=== PATIENT | male | born 1955 | race Caucasian/White ===

== ENCOUNTER 2017-05-07 15:45 | Emergency (ER) | payer BC ==
[~2017-05-07] VITALS: Ht 162.6 cm; Wt 73.0 kg
[~2017-05-07 15:45] MED LIST: ALP25 PO; ALPR-448 PO; AMLO-96 PO; ASC500 PO; BACDS PO; CLI150 PO; DOXY-179 PO; DOXY-229 PO; DOXY150T6 PO; DULO30CA6 PO; DULO60CA7 PO; FEXO-72 PO; GAB100 PO; HYDR-3250 PO; HYDR-3377 PO; HYDR-385 PO; IBU200 PO; KET10 PO; LIDO10VI16 INJ; LIDO10VI16 INTRA-ART; LOR5/325 PO; LOSA-37 PO; LOSA-57 PO; MELO-207 PO; MULT-923 PO; NYST15CR32 TP; NYST15OI15 TP; OMEG-26 PO; OMEP40CA48 PO; ONDA4TAB PO; PAN40 PO; PER PO; TRI40I IART
--- NOTE | 2017-05-07 15:47 | ER Report ---
History and Physical Time Seen By MD: 15:46 Hx. of Stated Complaint: weakness HPI/ROS 61-year-old male comes in with 2 bottles of losartan and hydrochlorothiazide 112.5 mom states that they talk to someone in his physicians clinic who told him he should be taking both medications has felt some weakness after initiating both medications I did talk to to be myself and he said make sure he is just taking 1 pill get rid of the 2nd prescription Allergies: Coded Allergies: Penicillins (Verified Allergy, Mild, 05/07/17) sulfamethoxazole (Verified Allergy, Mild, 05/07/17) trimethoprim (Verified Allergy, Mild, 05/07/17) Uncoded Allergies: SEASONAL ALLERGIES (Allergy, Intermediate, SNEEZING, 06/26/11) Home Meds Active Scripts Losartan/Hydrochlorothiazide (LOSARTAN-HCTZ 100-12.5 MG TAB) 1 Each Tablet, 1 TAB PO QAM, #90 TAB 3 Refills Prov:ROMI WILCOX MD 04/30/17 Omeprazole (OMEPRAZOLE) 40 Mg Capsule., 1 CAP PO DAILY, #90 CAP 3 Refills Prov:ROMI WILCOX MD 04/30/17 Discontinued Scripts NYSTATIN 029757 UNT/ML Topical Cream (NYSTATIN 007184 UNT/ML Topical Cream) 15 Gm Cream..g., 15 GM TP BID, #30 GM Prov:ROMI WILCOX MD 04/30/17 Amlodipine Besylate (AMLODIPINE BESYLATE) 5 Mg Tablet, 1 TAB PO QDAY, #30 TAB 6 Refills Prov:ROMI WILCOX MD 04/30/17 Losartan/Hydrochlorothiazide (LOSARTAN-HCTZ 100-12.5 MG TAB) 1 Each Tablet, 1 TAB PO QAM, #30 TAB 0 Refills Prov:ROMI WILCOX MD 04/18/17 Omeprazole (OMEPRAZOLE) 40 Mg Capsule., 1 CAP PO DAILY, #30 CAP 0 Refills Prov:ROMI WILCOX MD 04/18/17 Nystatin/Triamcin (NYSTATIN-TRIAMCINOLONE OINTM) 15 Gm Oint...g., 15 GM TP BID, #30 GM Prov:ROMI WILCOX MD 01/30/17 Doxycycline Hyclate (DOXYCYCLINE HYCLATE) 100 Mg Tablet, 100 MG PO QDAY, #10 TAB 3 Refills Prov:ROMI WILCOX MD 09/26/16 Alprazolam 0.5 Mg Tab (ALPRAZOLAM 0.5 MG TAB) 0.5 Mg Tablet, 1 TAB PO BID Y for prn, #60 TAB 3 Refills Prov:ROMI WILCOX MD 09/26/16 Past Medical/Surgical History htn, gerd Hx Smoking: Yes (1 PPD) Smoking Status: Current: Every Day Smoker Hx Substance Use Disorder: No Hx Alcohol Use: No Family History of: HTN Constitutional Vital Sign - Last 24 Hours 05/07/17 15:51 Temp 98.5 Pulse 61 Resp 20 B/P (MAP) 160/82 Pulse Ox 93 O2 Delivery Room Air Physical Exam 61 year old alert and orieted nad, дмитрий tm non reddened hrr, lungs cta , abd soft , evaristo no peripheral edema Medical Decision Making Data Points Result Diagram: 05/07/17 1608 05/07/17 1608 Laboratory Hematology Test 05/07/17 16:08 Red Blood Count 5.42 M/uL (4.00-5.60) Mean Corpuscular Volume 82.7 fL (80.0-96.0) Mean Corpuscular Hemoglobin 28.7 pg (26.0-33.0) Mean Corpuscular Hemoglobin Concent 34.6 g/dL (32.0-36.0) Red Cell Distribution Width 13.2 % (11.5-14.5) Mean Platelet Volume 8.2 fL (7.2-11.1) Sodium Level 138 mmol/L (137-145) Potassium Level 3.7 mmol/L (3.5-5.0) Chloride Level 99 mmol/L (98-107) Carbon Dioxide Level 27 mmol/L (22-30) Blood Urea Nitrogen 16 mg/dl (9-21) Creatinine 0.90 mg/dl (0.66-1.25) Glomerular Filtration Rate Calc > 60.0 Random Glucose 94 mg/dl (75-110) Calcium Level 9.1 mg/dl (8.4-10.2) Total Bilirubin 0.4 mg/dl (0.2-1.3) Aspartate Amino Transf (AST/SGOT) 41 U/L (0-35) Alanine Aminotransferase (ALT/SGPT) 44 U/L (0-56) Alkaline Phosphatase 65 U/L (0-126) Total Protein 8.2 gm/dl (6.3-8.2) Albumin 4.6 g/dl (3.5-5.0) Chemistry Test 05/07/17 16:08 White Blood Count 7.1 k/uL (4.5-11.0) Red Blood Count 5.42 M/uL (4.00-5.60) Hemoglobin 15.5 g/dL (14.0-18.0) Hematocrit 44.8 % (42.0-52.0) Mean Corpuscular Volume 82.7 fL (80.0-96.0) Mean Corpuscular Hemoglobin 28.7 pg (26.0-33.0) Mean Corpuscular Hemoglobin Concent 34.6 g/dL (32.0-36.0) Red Cell Distribution Width 13.2 % (11.5-14.5) Platelet Count 199 K/uL (150-450) Mean Platelet Volume 8.2 fL (7.2-11.1) Glomerular Filtration Rate Calc > 60.0 Calcium Level 9.1 mg/dl (8.4-10.2) Total Bilirubin 0.4 mg/dl (0.2-1.3) Aspartate Amino Transf (AST/SGOT) 41 U/L (0-35) Alanine Aminotransferase (ALT/SGPT) 44 U/L (0-56) Alkaline Phosphatase 65 U/L (0-126) Total Protein 8.2 gm/dl (6.3-8.2) Albumin 4.6 g/dl (3.5-5.0) ED Course/Re-evaluation ED Course bp 140/80 in the er , have told him to only take one tab of losartan/hctz daily Re-evaluation doing well asymptomatic Decision to Disposition Date: May 07, 2017 Decision to Disposition Time: 15:57 Depart Departure Latest Vital Signs Vital Signs Date Time Temp Pulse Resp B/P (MAP) Pulse Ox O2 Delivery O2 Flow Rate FiO2 05/07/17 15:51 98.5 61 20 160/82 93 Room Air Impression: Primary Impression: Hypertension, benign Condition: Improved Disposition: HOME OR SELF-CARE Referrals: ROMI WILCOX MD (PCP) 2 Days Patient Instructions: Hypertension (ED) Additional Instructions: Only use most current prescription as prescribed follow up with your primary care doctor this week KERRY HAMILTON May 07, 2017 15:47
[2017-05-07 16:44] VITALS: BP 124/82
== END 2017-05-07 16:50 | disposition home or self-care (01) ==
LOC: ER 15:49
DX: G93.2 Benign intracranial hypertension (principal)
CPT/HCPCS: 36415; 82040; 82247; 82310; 82374; 82435; 82565; 82947; 84075; 84132; 84155; 84295; 84450; 84460; 84520; 85027; 99282

== ENCOUNTER 2018-04-28 09:03 | Outpatient (RCR) | payer BC ==
[~2018-04-28 09:03] MED LIST changes: +AMLO-125 PO; +AMLO-127 PO; -AMLO-96 PO; +OLOOD OU
--- NOTE | 2018-04-29 16:02 | RADIOLOGY IMAGING REPORT ---
FACILITY: [facility] - [place] PATIENT NAME: Rohit Hand : 1955 MR: [id number] V: [id number] EXAM DATE: ORDERING PHYSICIAN: ROCIO LUQUE TECHNOLOGIST: Location: [facility] [place] Patient: Rohit Hand : 1955 Visit/Account:[id number] Date of Sevice: 04/29/2018 EXAMINATION: CT abdomen with IV contrast CT pelvis with IV contrast HISTORY: Abdominal wall bulge. TECHNIQUE: Spiral scan was through the abdomen and pelvis during injection of nonionic iodinated in travenous contrast. Sagittal and coronal reformatted images are also submitted. One of the following dose optimization techniques was utilized in the performance of this exam: Autom ated exposure control; adjustment of the mA and/or kV according to the patient's size; or use of an i terative reconstruction technique. Specific details can be referenced in the facility's radiology C T exam operational policy. CONTRAST: 90 mL of IV Isovue-370 COMPARISON: Abdomen and pelvis CT dated 11/16/2010. FINDINGS: Lower chest: Negative. Liver / biliary: Negative. Pancreas: Negative. Spleen: Negative. Adrenal glands: Negative. Kidneys: Negative. Pelvic structures: Negative. Bowel: Normal appendix. Otherwise negative. Peritoneum / retroperitoneum / mesenteries: Negative. Vessels: Moderate aortoiliac calcification with no aneurysm. Lymph nodes: Mildly enlarged lymph nodes posterior and superior to the pancreatic head measuring up t o 2.9 x 1.9 cm, previously measuring 2.5 x 1.4 cm on 11/16/2010. Musculoskeletal / Body wall: Mild rectus abdominis diastases. No hernia. Multilevel degenerative di sc disease in the thoracolumbar spine. Mild bilateral hip osteoarthritis. IMPRESSION: 1. Mild rectus abdominis diastases. No hernia. 2. No acute abnormality in the abdomen or pelvis. 3. Mildly enlarged lymph nodes posterior and superior to the pancreatic head measuring up to 2.9 x 1 .9 cm, previously measuring 2.5 x 1.4 cm on 11/16/2010. These are probably benign given the very slow growth since 2010. 4. Multilevel degenerative disc disease in the thoracolumbar spine. Mild bilateral hip osteoarthrit is. Report Dictated By: Henrique Jimenez MD at 04/29/2018 3:45 PM Report E-Signed By: Henrique Jimenez MD at 04/29/2018 3:57 PM WSN:[email or web address]
== END 2018-04-29 18:00 | disposition home or self-care (01) ==
LOC: LAB 09:03
PROVIDERS: ATTEND Surgery
DX: M62.08 Separation of muscle (nontraumatic), other site (principal); R59.0 Localized enlarged lymph nodes; M16.0 Bilateral primary osteoarthritis of hip
CPT/HCPCS: 36415; 74177; 82565; Q9967

== ENCOUNTER 2018-08-16 20:51 | Observation (INO) | payer BC ==
[~2018-08-16] VITALS: Ht 162.6 cm; Wt 72.1 kg
[~2018-08-16 20:51] MED LIST changes: +ALBU8.5H IH; +ATOR20TA65 PO; +AZIT-17 PO; +BUPR1FIL7 SL; +IPRA3AMP10 IH; +PRED20TA6 PO
--- NOTE | 2018-08-16 21:00 | ER Report ---
History and Physical Time Seen By MD: 21:00 HPI/ROS CHIEF COMPLAINT: Shortness of breath HISTORY OF PRESENT ILLNESS: 62-year-old male smoker with history of COPD. He is followed by Dr. Taylor was seen 2 weeks ago treated with Zithromax, prednisone for 5 days. He was also dispensed an albuterol inhaler. Patient notes increasing shortness of breath over the last 2 days with a productive cough of yellow-green sputum. He's had low-grade fevers. Patient notes increased work of breathing, especially with exertion. On arrival. His pulse ox is 83% on room air. He requires 5 L. Patient's on no home O2. During the last visit. His pulse ox is 85% and came up to 93% after nebulizer. He was discharged home on an albuterol inhaler at that time. Eyes, chest pain, diaphoresis, nausea or leg swelling. REVIEW OF SYSTEMS: Respiratory: As above Cardiovascular: No chest pain, no palpitations. Gastrointestinal: No vomiting, no abdominal pain. Musculoskeletal: No back pain. Allergies: Coded Allergies: Penicillins (Verified Allergy, Mild, 05/07/17) sulfamethoxazole (Verified Allergy, Mild, 05/07/17) trimethoprim (Verified Allergy, Mild, 05/07/17) Uncoded Allergies: SEASONAL ALLERGIES (Allergy, Intermediate, SNEEZING, 06/26/11) Home Meds Active Scripts Prednisone (PREDNISONE) 20 Mg Tablet, 40 MG PO QDAY for 10 Days, #20 TAB Prov:AARON APPLE DO 08/17/18 Tiotropium [place] (SPIRIVA) 18 Mcg/Cap Inh, 0 MCG INH QDAYR for 30 Days, #1 INH Prov:AARON APPLE DO 08/17/18 Doxycycline Hyclate (DOXYCYCLINE HYCLATE) 100 Mg Tablet, 100 MG PO BID for 7 Days, #14 TAB Prov:AARON APPLE DO 08/17/18 Albuterol Sulfate 90 Mcg/Act (PROAIR HFA 90 MCG/ACT) 8.5 Gm Hfa.aer.ad, 2 PUFF IH Q4-6H PRN for SHORTNESS OF BREATH, #1 INHALER 1 Refill Prov:ROMI TAYLOR MD 07/31/18 Atorvastatin Calcium (ATORVASTATIN CALCIUM) 20 Mg Tablet, 1 TAB PO QDAY, #30 TAB 3 Refills Prov:ROMI TAYLOR MD 07/31/18 NYSTATIN 341302 UNT/ML Topical Cream (NYSTATIN 429360 UNT/ML Topical Cream) 15 Gm Cream..g., 15 GM TP BID, #15 GM Prov:ROMI TAYLOR MD 07/31/18 Omeprazole (OMEPRAZOLE) 40 Mg Capsule.dr, 1 CAP PO DAILY, #90 CAP 4 Refills Prov:ROMI TAYLOR MD 07/31/18 Amlodipine Besylate (AMLODIPINE BESYLATE) 10 Mg Tablet, 1 TAB PO QDAY, #90 TAB 3 Refills Prov:ROMI TAYLOR MD 07/31/18 Losartan/Hydrochlorothiazide (LOSARTAN-HCTZ 100-12.5 MG TAB) 1 Each Tablet, 1 TAB PO QAM, #90 TAB 3 Refills Prov:ROMI TAYLOR MD 07/31/18 Reported Medications Buprenorphine Hcl/Naloxone Hcl (SUBOXONE 8 MG-2 MG SL FILM) 1 Each Film, 1 EACH SL BID, FILM 05/13/18 Discontinued Scripts Prednisone (PREDNISONE) 20 Mg Tablet, 20 MG PO BID, #10 TAB Prov:ROMI TAYLOR MD 07/31/18 Azithromycin (Z-PACK) 250 Mg Tablet, 0 PO QDAY, #6 DOSE-PACK Prov:ROMI TAYLOR MD 07/31/18 Past Medical/Surgical History Past medical history: Neuropathy, allergic rhinitis, deviated septum, right parotid tumor resection, hypertension, COPD, GERD, chronic 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 Past surgical history parotid tumor resection of right jaw, arthroscopy right knee , carpal tunnel release 1984, spinal surgery of C7 1990 Reviewed Nurses Notes: Yes Old Medical Records Reviewed: Yes Hx Smoking: Yes (1 PPD) Smoking Status: Current: Every Day Smoker Hx Substance Use Disorder: No Hx Alcohol Use: No Constitutional Vital Sign - Last 24 Hours 08/16/18 08/16/18 08/16/18 08/16/18 20:56 20:58 21:00 21:10 Temp 98.5 Pulse 70 Resp 22 B/P (MAP) 159/73 159/73 (101) Pulse Ox 83 92 O2 Delivery Room Air Nasal Cannula O2 Flow Rate 5.0 4.5 08/16/18 08/16/18 08/16/18 08/16/18 21:11 21:13 21:20 21:21 Pulse 65 64 66 Resp 16 16 18 B/P (MAP) 130/65 (86) Pulse Ox 90 08/16/18 08/16/18 08/16/18 08/16/18 21:30 21:51 21:56 22:56 Pulse 65 63 61 Resp 25 15 12 B/P (MAP) 128/67 (87) Pulse Ox 95 95 91 08/16/18 08/16/18 08/16/18 08/16/18 23:00 23:26 23:31 23:32 Pulse 68 62 Resp 18 B/P (MAP) 129/63 (85) Pulse Ox 85 92 O2 Delivery Nasal Cannula O2 Flow Rate 4.0 08/16/18 23:37 Pulse 60 Resp 18 Intake and Output 08/16/18 08/16/18 08/17/18 14:59 22:59 06:59 Intake Total 1000 ml Balance 1000 ml Physical Exam General Appearance: The patient is alert, has no immediate need for airway protection and no current signs of toxicity. Signs stable, pulse ox 85% on room air, requiring 5 L to maintain saturations in the low 90s HEENT: Pupils equal and round no injection. TMs normal, oropharynx with mild erythema, no exudate Respiratory: Chest is non tender, decreased breath sounds throughout with bibasilar rhonchi and wheezing Cardiac: regular rate and rhythm Gastrointestinal: Abdomen is soft and non tender, no masses, bowel sounds normal. Musculoskeletal: Neck: Neck is supple and non tender. No lymphadenopathy Extremities have full range of motion and are non tender. No edema, no calf tenderness Skin: No rashes or lesions. DIFFERENTIAL DIAGNOSIS: After history and physical exam differential diagnosis was considered for shortness of breath including but not limited to pulmonary infectious process, COPD, asthma, pulmonary embolus and congestive heart failure. Medical Decision Making Data Points Result Diagram: 08/16/18211208/16/182112 Laboratory Hematology Test 08/16/18 21:13 Red Blood Count 5.07 M/uL (4.00-5.60) Mean Corpuscular Volume 83.5 fL (80.0-96.0) Mean Corpuscular Hemoglobin 28.4 pg (26.0-33.0) Mean Corpuscular Hemoglobin Concent 34.0 g/dL (32.0-36.0) Red Cell Distribution Width 13.3 % (11.5-14.5) Mean Platelet Volume 8.0 fL (7.2-11.1) Neutrophils (%) (Auto) 52.4 % (39.4-72.5) Lymphocytes (%) (Auto) 27.7 % (17.6-49.6) Monocytes (%) (Auto) 9.7 % (4.1-12.4) Eosinophils (%) (Auto) 9.3 % (0.4-6.7) Basophils (%) (Auto) 0.9 % (0.3-1.4) Nucleated RBC Relative Count (auto) 0.0 /100WBC Neutrophils # (Auto) 4.1 K/uL (2.0-7.4) Lymphocytes # (Auto) 2.2 K/uL (1.3-3.6) Monocytes # (Auto) 0.8 K/uL (0.3-1.0) Eosinophils # (Auto) 0.7 K/uL (0.0-0.5) Basophils # (Auto) 0.1 K/uL (0.0-0.1) Nucleated RBC Absolute Count (auto) 0.00 K/uL D-Dimer Quantitative (PE/DVT) 0.72 ug/ml (0-0.50) Sodium Level 143 mmol/L (137-145) Potassium Level 3.5 mmol/L (3.5-5.0) Chloride Level 105 mmol/L (98-107) Carbon Dioxide Level 25 mmol/L (22-30) Blood Urea Nitrogen 13 mg/dl (9-21) Creatinine 0.90 mg/dl (0.66-1.25) Glomerular Filtration Rate Calc > 60.0 Random Glucose 120 mg/dl (75-110) Lactate 1.7 mmol/L (0.7-2.1) Calcium Level 9.1 mg/dl (8.4-10.2) Total Bilirubin 0.2 mg/dl (0.2-1.3) Aspartate Amino Transf (AST/SGOT) 23 U/L (0-35) Alanine Aminotransferase (ALT/SGPT) 24 U/L (0-56) Alkaline Phosphatase 62 U/L (0-126) Troponin I < 0.012 ng/ml B-Type Natriuretic Peptide 49 pg/ml (0-100) Total Protein 7.1 g/dl (6.3-8.2) Albumin 4.1 g/dl (3.5-5.0) Chemistry Test 08/16/18 21:13 White Blood Count 7.9 k/uL (4.5-11.0) Red Blood Count 5.07 M/uL (4.00-5.60) Hemoglobin 14.4 g/dL (14.0-18.0) Hematocrit 42.4 % (42.0-52.0) Mean Corpuscular Volume 83.5 fL (80.0-96.0) Mean Corpuscular Hemoglobin 28.4 pg (26.0-33.0) Mean Corpuscular Hemoglobin Concent 34.0 g/dL (32.0-36.0) Red Cell Distribution Width 13.3 % (11.5-14.5) Platelet Count 214 K/uL (150-450) Mean Platelet Volume 8.0 fL (7.2-11.1) Neutrophils (%) (Auto) 52.4 % (39.4-72.5) Lymphocytes (%) (Auto) 27.7 % (17.6-49.6) Monocytes (%) (Auto) 9.7 % (4.1-12.4) Eosinophils (%) (Auto) 9.3 % (0.4-6.7) Basophils (%) (Auto) 0.9 % (0.3-1.4) Nucleated RBC Relative Count (auto) 0.0 /100WBC Neutrophils # (Auto) 4.1 K/uL (2.0-7.4) Lymphocytes # (Auto) 2.2 K/uL (1.3-3.6) Monocytes # (Auto) 0.8 K/uL (0.3-1.0) Eosinophils # (Auto) 0.7 K/uL (0.0-0.5) Basophils # (Auto) 0.1 K/uL (0.0-0.1) Nucleated RBC Absolute Count (auto) 0.00 K/uL D-Dimer Quantitative (PE/DVT) 0.72 ug/ml (0-0.50) Glomerular Filtration Rate Calc > 60.0 Lactate 1.7 mmol/L (0.7-2.1) Calcium Level 9.1 mg/dl (8.4-10.2) Total Bilirubin 0.2 mg/dl (0.2-1.3) Aspartate Amino Transf (AST/SGOT) 23 U/L (0-35) Alanine Aminotransferase (ALT/SGPT) 24 U/L (0-56) Alkaline Phosphatase 62 U/L (0-126) Troponin I < 0.012 ng/ml B-Type Natriuretic Peptide 49 pg/ml (0-100) Total Protein 7.1 g/dl (6.3-8.2) Albumin 4.1 g/dl (3.5-5.0) Coagulation Test 08/16/18 21:13 D-Dimer Quantitative (PE/DVT) 0.72 ug/ml Microbiology Microbiology Date/Time Source Procedure Growth Status 08/16/18 21:35 Blood Peripheral Draw Blood Culture - Preliminary NO GROWTH AFTER 1 DAY, REINCUBATED Resulted 08/16/18 21:13 Blood Peripheral Draw Blood Culture - Preliminary NO GROWTH AFTER 1 DAY, REINCUBATED Resulted EKG/Imaging EKG Interpretation 12 lead EK Rhythm: normal sinus rhythm [place]: normal QRS: normal ST segments: normal, comparison to previous EKG dated 02/11/15 and no significant change. Imaging Results: CT scan of the CTA pulmonary angiogram was obtained. The results of the study are CT CTA CHEST W & W/O CON HISTORY: Hypoxia. Elevated d-dimer. ADDITIONAL HISTORY: None. TECHNIQUE: CTA chest with contrast. 3D coronal slab MIPs and 2D reconstructions in the coronal and sagittal planes were also created. One of the following dose optimization techniques was utilized in the performance of this exam: automated exposure control; adjustment of the mA and/or kv according to patient size; or use of iterative reconstruction technique. Specific details can be referenced in the facility's radiology CT exam operational policy. CONTRAST: 75 cc of Isovue-370 COMPARISON: None. FINDINGS: Vessels: No acute filling defect within the main, lobar or segmental pulmonary arteries. Mild calcification of the coronary arteries. Lower neck: Negative. Heart and pericardium: Negative Mediastinum/hilum/lymph nodes: Negative. Lungs/pleura: Moderate bronchial thickening. 3 mm pleural-based right upper lobe nodule (image 41). No consolidation or pleural effusion. Mucous plugging within the bilateral lower lobes. Visualized upper abdomen: Negative. Bones/soft tissues: Negative. Other findings: None significant IMPRESSION: 1. Negative for acute pulmonary embolism. 2. Moderate bronchial thickening with mucous plugging within the bilateral lower lobes. 3. 3 mm noncalcified right upper lobe pulmonary nodule. Fleischner Society recommendations below. FLEISCHNER SOCIETY FOLLOW-UP GUIDELINES FOR NEWLY DETECTED INCIDENTAL NODULES IN PERSONS 35 YEARS OF AGE OR OLDER. *These recommendations do NOT apply to lung cancer screening, patients with immunosuppression or patients with a known primary malignancy. The study was read by the radiologist. I viewed the images myself on the PACS system. ED Course/Re-evaluation Clinical Indication for ER IV: Hydration, IV Access ED Course Patient was admitted to an examination room. H&P was done. The differential diagnoses was considered. Patient was treated for COPD exacerbation. Chest x- ray shows no obvious infiltrate. Patient's had productive cough of yellowish sputum. He was treated with Zithromax 2 weeks ago without improvement. He's rebounded after finishing his medications and gotten much worse over the last 2 days. He has increased work of breathing with exertion here in the ER. His pulse ox on room air was 83%. He's requiring 5 L for normal saturations. EKG was unremarkable for changes. Diagnostic studies show normal white blood cell count. Patient was treated with IV Solu-Medrol, DuoNeb 2. Patient continues to smoke one half pack per day. Patient's unable to tolerate walking to the bathroom without increased work of breathing. Case was discussed with hospitalist who accepts the patient for admission. A CT scan was done to rule out pulmonary embolism. It was negative for PEs, but showed gross bronchial plugging with mucus in the lower lobes bilaterally. 08/16/2018 11:49:36 pm is discussed with Dr. Douglas hospitalist on-call, who accepts the patient for admission for treatment of his COPD exacerbation. Decision to Disposition Date: Aug 16, 2018 Decision to Disposition Time: 23:34 Depart Departure Latest Vital Signs Vital Signs Date Time Temp Pulse Resp B/P (MAP) Pulse Ox O2 Delivery O2 Flow Rate FiO2 08/16/18 23:37 60 18 08/16/18 23:32 92 Nasal Cannula 4.0 08/16/18 23:00 129/63 (85) 08/16/18 20:56 98.5 Impression: Primary Impression: Acute bronchitis Additional Impressions: Mucus plugging of bronchi COPD exacerbation Condition: Improved Disposition: Admitted from ER Referrals: ROMI TAYLOR MD (PCP) New Scripts Prednisone (PREDNISONE) 20 Mg Tablet 40 MG PO QDAY for 10 Days, #20 TAB Prov: AARON APPLE DO 08/17/18 Tiotropium [place] (SPIRIVA) 18 Mcg/Cap Inh 0 MCG INH QDAYR for 30 Days, #1 INH Prov: AARON APPLE DO 08/17/18 Doxycycline Hyclate (DOXYCYCLINE HYCLATE) 100 Mg Tablet 100 MG PO BID for 7 Days, #14 TAB Prov: AARON APPLE DO 08/17/18 Problem Qualifiers Primary Impression: Acute bronchitis Bronchitis organism: unspecified organism Qualified Codes: J20.9 - Acute bronchitis, unspecified MIRACLE MIKE DO Aug 16, 2018 21:00
[2018-08-16] MEDS ORDERED: NS(*) 0.9% 1000 ML BAG 1,000 ML IV ONE (21:04)
--- NOTE | 2018-08-16 21:23 | EKG ---
FACILITY: [facility] - [place] PATIENT NAME: IFEANYI THOMAS : [id number] MR: [id number] V: [id number] EXAM DATE: ORDERING PHYSICIAN: MIRACLE MIKE TECHNOLOGIST: YUSEF Test Reason : DYSPNEA Blood Pressure : / mmHG Vent. Rate : 064 BPM Atrial Rate : 064 BPM P-R Int : 160 ms QRS Dur : 094 ms QT Int : 424 ms P-R-T Axes : 064 070 066 degrees QTc Int : 437 ms Normal sinus rhythm Non-specific T wave flattening similar to previous ECG. When compared with ECG of 11-FEB-2015 08:43, No significant change was found Confirmed by ABEL SMALLWOOD ([id number]) on 08/16/2018 10:40:43 PM Referred By: Confirmed By:ABEL SMALLWOOD
[2018-08-16 21:40] LABS: PLATELET COUNT, AUTOMATED 214 K/uL (150-450)
[2018-08-16] MEDS ORDERED: NS(*) 0.9% 50 ML BAG 50 ML ONE (21:59)
[2018-08-16] MEDS ORDERED: IOPAMIDOL 76% 100 ML INFUS BTL 100 ML ONE (21:59)
--- NOTE | 2018-08-16 23:08 | RADIOLOGY IMAGING REPORT ---
FACILITY: [facility] PATIENT NAME: Rohit Hand : 1955 MR: [id number] V: [id number] EXAM DATE: ORDERING PHYSICIAN: MIRACLE MIKE TECHNOLOGIST: Location: [facility] Patient: Rohit Hand : 1955 Visit/Account:[id number] Date of Sevice: 08/16/2018 CT CTA CHEST W & W/O CON HISTORY: Hypoxia. Elevated d-dimer. ADDITIONAL HISTORY: None. TECHNIQUE: CTA chest with contrast. 3D coronal slab MIPs and 2D reconstructions in the coronal and sagittal planes were also created. One of the following dose optimization techniques was utilized in the performance of this exam: automated exposure control; adjustment of the mA and/or kv according to patient size; or use of iterative reconstruction technique. Specific details can be referenced in [facility] radi[facility] exam operational policy. CONTRAST: 75 cc of Isovue-370 COMPARISON: None. FINDINGS: Vessels: No acute filling defect within the main, lobar or segmental pulmonary arteries. Mild calcif ication of the coronary arteries. Lower neck: Negative. Heart and pericardium: Negative Mediastinum/hilum/lymph nodes: Negative. Lungs/pleura: Moderate bronchial thickening. 3 mm pleural-based right upper lobe nodule (image 41). No consolidation or pleural effusion. Mucous plugging within the bilateral lower lobes. Visualized upper abdomen: Negative. Bones/soft tissues: Negative. Other findings: None significant IMPRESSION: 1. Negative for acute pulmonary embolism. 2. Moderate bronchial thickening with mucous plugging within the bilateral lower lobes. 3. 3 mm noncalcified right upper lobe pulmonary nodule. Fleischner Society recommendations below. FLEISCHNER SOCIETY FOLLOW-UP GUIDELINES FOR NEWLY DETECTED INCIDENTAL NODULES IN PERSONS 35 YEARS OF AGE OR OLDER. *These recommendations do NOT apply to lung cancer screening, patients with immunosuppression or dustin ents with a known primary malignancy. SOLITARY SOLID NODULE If nodule size is < 6 mm: * Low risk patient ? No routine follow-up. * High risk patient ? Optional CT at 12 months. If nodule size is 6-8 mm: * Low risk patient ? CT at 6-12 months, then consider CT at 18-24 months if no change. * High risk patient ? CT at 6-12 months, then CT at 18-24 months if no change. If nodule size is > 8 mm: * Low risk patient ? Consider CT at 3, 9 and 24 months (if no change), PET/CT, tissue sampling or a combination thereof. * High risk patient ? Consider CT at 3, 9 and 24 months (if no change), PET/CT, tissue sampling, or a combination thereof. LOW RISK PATIENT: Minimal or absent history of tobacco use and of other known risk factors. HIGH RISK PATIENT: Tobacco use, family history of lung cancer, upper pulmonary lobe location of nodul e, presence of emphysema, pulmonary fibrosis, older age. Robert H, Asmita DP, Georgeo JM, et al. Guidelines for Management of Incidental Pulmonary Nodules Dete cted on CT Images: From the Fleischner Society 2017. Radiology. Report Dictated By: Garo Goodwin MD at 08/16/2018 10:57 PM Report E-Signed By: Garo Goodwin MD at 08/16/2018 11:03 PM WSN:[id number]
[2018-08-16] MEDS ORDERED: methylPREDNIS SUCC 125 MG/2ML IVP ONE (23:15)
[2018-08-16] MEDS ORDERED: CEFUROXIME AXETIL 250 MG TAB PO ONE (23:15)
[2018-08-16] MEDS ORDERED: ALBUTEROL/IPRATROPIUM 3 ML NEB NEB ONE (23:15)
[2018-08-17] MEDS ORDERED: ALBUTEROL 1.25 MG/3ML NEB NEB PRN (00:05)
[2018-08-17 00:34] VITALS: BP 140/69
--- NOTE | 2018-08-17 00:36 | History & Physical ---
History of Present Illness Chief Complaint Shortness of breath History of Present Illness 62 yr old male with shortness of breath unresponsive to outpt. care with zithromax, prednisone and albuterol inhaler. Long history of COPD due to heavy smoking for approx 40 years. Recurrent hx of acute exacerbations usually due to bronchitis. Seen in ER tonight and did not respond very well to oral ceftin, nebs and IV steroids. CT of chest showed thickening of bronchi mostly in lower lobes with no pneumonia. No PE's. ER doc requested admission due to poor response to therapy and continued high O2 requirements (5L/min). History Problems: (1) Allergic rhinitis Status: Chronic (2) Erectile dysfunction Status: Chronic (3) Primary localized osteoarthrosis, lower leg Status: Chronic (4) Esophageal reflux Status: Chronic (5) Tobacco use disorder Status: Chronic (6) Hyperlipidemia Status: Chronic (7) Hypertension, benign Status: Chronic (8) Chronic pain Status: Chronic (9) Parotid neoplasm Status: Resolved Other Past Medical Hx Does not get flu shot because he "never gets the flu". Also has not received pneumonia vaccine. Advised to do both sometime this summer before fall season rolls around. He will discuss with Dr. Taylor. Home Meds Active Scripts Albuterol Sulfate 90 Mcg/Act (PROAIR HFA 90 MCG/ACT) 8.5 Gm Hfa.aer.ad, 2 PUFF IH Q4-6H PRN for SHORTNESS OF BREATH, #1 INHALER 1 Refill Prov:ROMI TAYLOR MD 07/31/18 Atorvastatin Calcium (ATORVASTATIN CALCIUM) 20 Mg Tablet, 1 TAB PO QDAY, #30 TAB 3 Refills Prov:ROMI TAYLOR MD 07/31/18 Prednisone (PREDNISONE) 20 Mg Tablet, 20 MG PO BID, #10 TAB Prov:ROMI TAYLOR MD 07/31/18 NYSTATIN 179822 UNT/ML Topical Cream (NYSTATIN 006347 UNT/ML Topical Cream) 15 Gm Cream..g., 15 GM TP BID, #15 GM Prov:ROMI TAYLOR MD 07/31/18 Omeprazole (OMEPRAZOLE) 40 Mg Capsule.dr, 1 CAP PO DAILY, #90 CAP 4 Refills Prov:ROMI TAYLOR MD 07/31/18 Amlodipine Besylate (AMLODIPINE BESYLATE) 10 Mg Tablet, 1 TAB PO QDAY, #90 TAB 3 Refills Prov:ROMI TAYLOR MD 07/31/18 Losartan/Hydrochlorothiazide (LOSARTAN-HCTZ 100-12.5 MG TAB) 1 Each Tablet, 1 TAB PO QAM, #90 TAB 3 Refills Prov:ROMI TAYLOR MD 07/31/18 Reported Medications Buprenorphine Hcl/Naloxone Hcl (SUBOXONE 8 MG-2 MG SL FILM) 1 Each Film, 1 EACH SL BID, FILM 05/13/18 Discontinued Scripts Azithromycin (Z-PACK) 250 Mg Tablet, 0 PO QDAY, #6 DOSE-PACK Prov:ROMI TAYLOR MD 07/31/18 Allergies: Coded Allergies: Penicillins (Verified Allergy, Mild, 05/07/17) sulfamethoxazole (Verified Allergy, Mild, 05/07/17) trimethoprim (Verified Allergy, Mild, 05/07/17) Uncoded Allergies: SEASONAL ALLERGIES (Allergy, Intermediate, SNEEZING, 06/26/11) Patient History: Cerebral hemorrhage FATHER, , Age:46 FH: breast cancer BROTHER OR SISTER, FH: diabetes mellitus FH: heart disease MOTHER, , Age:81 FH: seizures BROTHER OR SISTER, Hx Smoking: Yes (1 PPD) Smoking Status: Current: Every Day Smoker Hx Alcohol Use: No Review of Systems Constitutional: No Fever, No Weight Loss, No Weight Gain, No Chills, No Night Sweats Cardiovascular: No Chest Pain, No Palpitations, No Orthostatic Hypotension Respiratory: Shortness of Breath, Cough, Wheezing Gastrointestinal: Dysphagia Musculoskeletal: Pain Exam Vital Signs Vital Signs Date Time Temp Pulse Resp B/P (MAP) Pulse Ox O2 Delivery O2 Flow Rate FiO2 08/16/18 23:37 60 18 08/16/18 23:32 92 Nasal Cannula 4.0 08/16/18 23:00 129/63 (85) 08/16/18 20:56 98.5 General Appearance: Alert, Awake, No Acute Distress, Afebrile Cardiovascular: Regular Rate and Rhythm, Other (S1S2 are normal. No murmur, gallops or rubs.) Respiratory: Other (Ronchi both lower lobes with mild expiratory wheezing. Expansion is fairly good given the wheezing. No rubs.) Chest: No Tenderness : No CVA Tenderness Extremities: Soft and Non Tender, Warm, Pulses, Perfused Psych: Alert & Oriented X3, Appropriate Mood & Affect Medical Decision Making Data Points Result Diagram: 08/16/18211208/16/182112 EKG / Imaging EKG Interpretation Non- specific T changes. No acute changes. Sinus rhythm. Monitor Interpretation: Normal Sinus Rhythm Imaging CT of chest shows peribronchial thickening but no pneumonia. No PE's. Pre-Admit Course ED Medications REviewed. Medical Record Review: Yes Assessment and Plan Problems: (1) COPD exacerbation Status: Acute Assessment & Plan: Due to acute bronchitis type problem at this point. Admitted for IV antibiotic with rocephin (1gm IV bid) and steroids (60 mg IV q 8 hours). Doxycycline 100 mg po bid. Xopenex nebs. Mucinex bid and chest physiotherapy if needed. Monitor O2 closely. He is slightly better since admission with O2 at 4 L/min now. Obviously needs to quit smoking. (2) Hypertension, benign Status: Chronic Assessment & Plan: Continue current meds. (3) Hyperlipidemia Status: Chronic Assessment & Plan: Continue current meds (4) Esophageal reflux Status: Chronic Assessment & Plan: Continue current meds. (5) Tobacco use disorder Status: Chronic (6) Parotid neoplasm Status: Resolved Time Spent on Plan of Care: > 30 min Copies to: ROMI TAYLOR MD ; Venous Thromboembolism VTE Risk Physician Assess for VTE Risk: Yes Patient's VTE Risk: Low VTE Diagnostic Test 2 Days Prior to Admit: No Antithrombotics Is Pt On Any Antithrombotics?: No Prophylaxis Tx Contraindicated Pharmacological Contraindicati: Pt at Low Risk for VTE Mechanical Contraindications: Pt at Low Risk for VTE Exam Sepsis Risk: No Definite Risk LUCRECIA SMALLWOOD MD FACP Aug 17, 2018 00:36
[2018-08-17] MEDS: LEVALBUTEROL 1.25 MG/3 ML NEB NEB SCH ×3 (00:43→09:21)
[2018-08-17] MEDS: guaiFENesin 600 MG TABCR PO SCH ×2 (00:50→09:13)
[2018-08-17] MEDS: DOXYCYCLINE HYCL 100 MG TAB PO SCH ×2 (00:50→09:13)
[2018-08-17] MEDS ORDERED: cefTRIAXone 1 GM VIAL IVP SCH (01:00)
[2018-08-17] MEDS ORDERED: methylPREDNIS SUCC 125 MG/2ML IVP SCH (05:00)
[2018-08-17 05:26] VITALS: BP 127/63
[2018-08-17] MEDS ORDERED: PANTOPRAZOLE SOD 40 MG TABEC PO SCH (06:00)
[2018-08-17 06:45] VITALS: BP 116/65
[2018-08-17] MEDS ORDERED: TIOTROPIUM BROM INH 18 MCG/CAP INH SCH (08:45)
[2018-08-17] MEDS ORDERED: predniSONE 20 MG TAB PO SCH (09:00)
[2018-08-17] MEDS ORDERED: amLODIPine BESYL(*) 5 MG TAB PO SCH (09:00)
[2018-08-17] MEDS ORDERED: LOSARTAN POTASSIUM 50 MG TAB PO SCH ×2 (09:00)
[2018-08-17] MEDS ORDERED: HYDROCHLOROTHIAZIDE 25 MG TAB PO SCH ×2 (09:00)
--- NOTE | 2018-08-17 10:53 | Medical Nutrition Therapy ---
Nutrition Anthropometrics Height (Inches): 64.00 Height (Calculated Centimeters: 162.290075 Weight (Pounds): 159 Weight (Calculated Kilograms): 72.121 BMI: 27.3 Lit Nutrition Score: Adequate Lit Nutrition Risk Score: 22 Dietary Referral Nutrition Risk Factors: Nutrition Risk Comment: Physical Findings Physical Appearance: Overweight BMI 25-29 Skin Appearance Skin Appearance: Edema Edema Location Modifier: Edema Location: Type of Edema: Degree of Edema: Gastrointestinal Symptoms GI Symtoms: Tube Present: Bowel Sounds: Recent Bowel Pattern: Stool Characteristics: Nutrition/Food History Increased Appetite Good Nutritional Diagnosis Nutritional Risk Acuity 4: Good Appetite, Age Related Past Medical History: OA,HLD,HTN,GERD Nutritional Acuity: 4-Low Energy Requirement: 1851 (MSJ x AF1.3) Protein Requirement: 87 (87-123g/day 1.2-1.7g/kg (COPD Exacerabation)) Fluid Requirement: 1851 (1mL/kcal) Nutritional Needs Comment: Recommend increase ascorbic acid (fruit and vegetable) consumption as pt continues to smoke. Smoking increases ascorbic acid requirement. Nutrition Monitoring & Eval Nutrition Goals: Eat 75-100% Meal Nutrition Follow-Up: Good Intake Nutrition Monitoring: Monitor dietary intake and need for additional calories due to COPD exacerbation. RD Patient Assessment Time: [address] Assessment Type: RD Assessment Patient Nutrition Acuity: 4-Low Follow Up Date: Aug 22, 2018 Nutritional Comment: Reviewed pt medical history. Pt not having difficulty eating, does report increased appetite. Encouraged pt to order food as needed as pt has increased energy needs related to COPD exacerbation. Pt also has increased ascorbic acid requirements due to smoking. Recommend increasing fruit and vegetable intake to meet requirement. Will continue to monitor intake and need for oral nutrition supplement to help meet energy demands.RADHA DEL ANGEL Aug 17, 2018 10:53
[2018-08-17] MEDS ORDERED: TIO18R INH (11:06)
[2018-08-17] MEDS ORDERED: PRED20TA6 PO (11:06)
[2018-08-17] MEDS ORDERED: DOXY-179 PO (11:06)
--- NOTE | 2018-08-17 11:12 | Hospitalist Depart ---
Discharge Summary Reason for Hosp/Final Diag: (1) Acute respiratory failure with hypoxia Hospital Course & Plan: 2/2 COPD exacerbation. He was started on steroids, Abx, Spiriva. Will provide supplemental O2 on discharge, group home counselor smoking cessation. (2) COPD exacerbation Status: Acute Hospital Course & Plan: Due to acute bronchitis. Feeling much better after breathing treatments. He was started on doxycycline, prednisone for COPD exacerbation. Begin Spiriva as he has had 2 acute exacerbations within last month and one hospitalization. (3) Hypertension, benign Status: Chronic Hospital Course & Plan: Continue current meds. (4) Hyperlipidemia Status: Chronic Hospital Course & Plan: Continue current meds (5) Esophageal reflux Status: Chronic Hospital Course & Plan: Continue current meds. (6) Tobacco use disorder Status: Chronic (7) Parotid neoplasm Status: Resolved Departure Weight (Pounds): 159 Result Diagram: 08/16/18211208/16/182112 Condition: Improved Discharge: Home Discharge Instructions Home Meds Active Scripts Prednisone (PREDNISONE) 20 Mg Tablet, 40 MG PO QDAY for 10 Days, #20 TAB Prov:AARON APPLE DO 08/17/18 Tiotropium [place] (SPIRIVA) 18 Mcg/Cap Inh, 0 MCG INH QDAYR for 30 Days, #1 INH Prov:AARON APPLE DO 08/17/18 Doxycycline Hyclate (DOXYCYCLINE HYCLATE) 100 Mg Tablet, 100 MG PO BID for 7 Days, #14 TAB Prov:AARON APPLE DO 08/17/18 Albuterol Sulfate 90 Mcg/Act (PROAIR HFA 90 MCG/ACT) 8.5 Gm Hfa.aer.ad, 2 PUFF IH Q4-6H PRN for SHORTNESS OF BREATH, #1 INHALER 1 Refill Prov:ROMI WILCOX MD 07/31/18 Atorvastatin Calcium (ATORVASTATIN CALCIUM) 20 Mg Tablet, 1 TAB PO QDAY, #30 TAB 3 Refills Prov:ROMI WILCOX MD 07/31/18 NYSTATIN [id number] UNT/ML Topical Cream (NYSTATIN 891228 UNT/ML Topical Cream) 15 Gm Cream..g., 15 GM TP BID, #15 GM Prov:ROMI WILCOX MD 07/31/18 Omeprazole (OMEPRAZOLE) 40 Mg Capsule.dr, 1 CAP PO DAILY, #90 CAP 4 Refills Prov:ROMI WILCOX MD 07/31/18 Amlodipine Besylate (AMLODIPINE BESYLATE) 10 Mg Tablet, 1 TAB PO QDAY, #90 TAB 3 Refills Prov:ROMI WILCOX MD 07/31/18 Losartan/Hydrochlorothiazide (LOSARTAN-HCTZ 100-12.5 MG TAB) 1 Each Tablet, 1 TAB PO QAM, #90 TAB 3 Refills Prov:ROMI WILCOX MD 07/31/18 Reported Medications Buprenorphine Hcl/Naloxone Hcl (SUBOXONE 8 MG-2 MG SL FILM) 1 Each Film, 1 EACH SL BID, FILM 05/13/18 Discontinued Scripts Prednisone (PREDNISONE) 20 Mg Tablet, 20 MG PO BID, #10 TAB Prov:ROMI WILCOX MD 07/31/18 Azithromycin (Z-PACK) 250 Mg Tablet, 0 PO QDAY, #6 DOSE-PACK Prov:ROMI WILCOX MD 07/31/18 Diet: Regular Activity: As Tolerated Special Instructions: You were started on steroid and antibiotics for a COPD exacerbation, take as instructed until gone. You need to use your supplemental oxygen as directed until you can follow up with Dr Wilcox to reassess the need to continue. Copies to: ROMI WILCOX MD ; Venous Thromboembolism Antithrombotics Is Pt On Any Antithrombotics?: No AARON APPLE DO Aug 17, 2018 11:12
[2018-08-17 11:33] VITALS: BP 111/59
[2018-08-17] MEDS ORDERED: ATORVASTATIN 40 MG TAB PO SCH (21:00)
== END 2018-08-17 11:06 | disposition home or self-care (01) ==
LOC: ER 21:02 → INTOOBSV 08-17 → MED 08-17
PROVIDERS: ADMIT Family Medicine; ATTEND Family Medicine
DX: J44.0 Chronic obstructive pulmonary disease with (acute) lower respiratory infection (principal); J44.1 Chronic obstructive pulmonary disease with (acute) exacerbation; I10 Essential (primary) hypertension; E78.5 Hyperlipidemia, unspecified; K21.9 Gastro-esophageal reflux disease without esophagitis; J98.09 Other diseases of bronchus, not elsewhere classified; G62.9 Polyneuropathy, unspecified; G89.29 Other chronic pain; J30.9 Allergic rhinitis, unspecified; M17.10 Unilateral primary osteoarthritis, unspecified knee; N52.9 Male erectile dysfunction, unspecified; F17.210 Nicotine dependence, cigarettes, uncomplicated; Z79.899 Other long term (current) drug therapy
CPT/HCPCS: 71275; 83605; 83880; 84484; 85025; 85379; 87040; 93005; 94640; 96374; 96375; 96376; 99285; G0378; J0696; J2930; J3535; J7030; J7050; J7512; J7620; Q9967; 82040; 82247; 82310; 82374; 82435; 82565; 82947; 84075; 84132; 84155; 84295; 84450; 84460; 84520

== ENCOUNTER → 2018-09-10 | Outpatient (CLI) | payer BC ==
[~2018-09-10] MED LIST changes: +TIO18R INH
== END ==
LOC: RESP 01:12
PROVIDERS: ATTEND Internal Medicine
DX: E78.5 Hyperlipidemia, unspecified (principal); J20.9 Acute bronchitis, unspecified; I10 Essential (primary) hypertension; F17.200 Nicotine dependence, unspecified, uncomplicated
CPT/HCPCS: 94060; 94726; 94729

== ENCOUNTER → 2018-09-12 | Outpatient (CLI) | payer BC ==
[~2018-09-12] MED LIST changes: +FLUT1AER INH; +PRED-420 PO
--- NOTE | 2018-09-12 13:59 | RADIOLOGY IMAGING REPORT ---
FACILITY: [facility] - [place] PATIENT NAME: Rohit Hand : 1955 MR: [id number] V: [id number] EXAM DATE: ORDERING PHYSICIAN: ROMI WILCOX TECHNOLOGIST: Location: [facility] - [place] Patient: Rohit Hand : 1955 Visit/Account:[id number] Date of Sevice: 09/12/2018 Exam type: CHEST PA LAT History: cough, sob Comparison: August 19, 2016. Findings: The lungs are free of acute effusions, infiltrates or edema. The cardiac silhouette is normal in siz e. The trachea is in midline. Visualized bones are unremarkable for age. IMPRESSION: 1. No acute cardiopulmonary process is seen Report Dictated By: Abigail Church MD at 09/12/2018 1:45 PM Report E-Signed By: Abigail Church MD at 09/12/2018 1:53 PM WSN:[id number]
== END ==
LOC: RAD 11:43
PROVIDERS: ATTEND Internal Medicine
DX: J44.9 Chronic obstructive pulmonary disease, unspecified (principal); R09.02 Hypoxemia
CPT/HCPCS: 71046